=== PATIENT | male | born 1945 | race Caucasian/White ===

== ENCOUNTER 2024-03-17 09:17 | Day surgery (SDC) | payer MEDICARE, SELFPAY | END 2024-03-17 12:00 | disposition home or self-care (01) | LOC: CATH 09:17 | PROVIDERS: ATTENDING PHYSICIAN Internal Medicine; FAMILY PHYSICIAN Internal Medicine; OTHER PHYSICIAN Internal Medicine Cardiovascular Disease | DX: I48.0 Paroxysmal atrial fibrillation (principal); I10 Essential (primary) hypertension; I34.0 Nonrheumatic mitral (valve) insufficiency; Z87.891 Personal history of nicotine dependence; Z79.01 Long term (current) use of anticoagulants | CPT/HCPCS: 92960; 93005 ==

== ENCOUNTER → 2024-03-31 15:03 | Outpatient (REF) | payer MEDICARE, SELFPAY ==
[2024-03-31 16:04] LABS: % Basophils 0.7 % (0-2); % Eosinophils 2.6 % (0-6); % Immature Granulocytes 0.6 % (0-0.5); % Lymphocytes 25.4 % (20.5-51.1); % Monocytes 13.3 % (1.7-9.3); % Neutrophils 57.4 % (42.2-75.2); Absolute Basophils 0.1 10^3/uL (0-0.2); Absolute Eosinophils 0.2 10^3/uL (0-0.7); Absolute Immature Granulocytes 0.1 10^3/uL (0-0.05); Absolute Lymphocytes 2.1 10^3/uL (1.2-3.4); Absolute Monocytes 1.1 10^3/uL (0.1-0.6); Absolute Neutrophils 4.7 10^3/uL (1.4-6.5); Hematocrit 38.1 % (39.0-52.0); Hemoglobin 12.6 g/dL (13.0-18.0); Mean Corp Hgb Conc. 33.1 g/dL (33.0-37.0); Mean Corpuscular Hgb 32.9 pg (27.0-31.0); Mean Corpuscular Volume 99.5 fL (80.0-94.0); Mean Platelet Volume 10.4 fL (7.4-10.4); Nucleated Red Blood Cells % 0 % (-); Platelet Count 322 10^3/uL (130-400); Red Blood Cell Count 3.83 10^6/uL (4.70-6.10); Red Cell Dist. Width 13.2 % (11.5-14.5); White Blood Cell Count 8.1 10^3/uL (4.8-10.8)
[2024-03-31 16:18] LABS: ALT (SGPT) 13 U/L (0-50); AST (SGOT) 23 U/L (17-59); Albumin 4.2 g/dl (3.5-5.0); Alkaline Phosphatase 49 U/L (38-126); Blood Urea Nitrogen 23 mg/dl (9-20); Calcium 9.7 mg/dl (8.4-10.2); Carbon Dioxide 25 mmol/L (22-30); Chloride 105 mmol/L (98-107); Glucose 95 mg/dl (70-99); Potassium 4.3 mmol/L (3.5-5.1); Sodium 140 mmol/L (135-145); Total Bilirubin 0.6 mg/dl (0.2-1.3); Total Protein 6.8 g/dl (6.3-8.2); eGFR > 60.00
== END ==
LOC: REG 15:03
PROVIDERS: ATTENDING PHYSICIAN Internal Medicine Cardiovascular Disease; FAMILY PHYSICIAN Internal Medicine
DX: I48.19 Other persistent atrial fibrillation (principal); Z98.890 Other specified postprocedural states; I34.0 Nonrheumatic mitral (valve) insufficiency; I35.1 Nonrheumatic aortic (valve) insufficiency; I35.8 Other nonrheumatic aortic valve disorders
CPT/HCPCS: 36415; 80053; 85025; 86850; 86900; 86901

== ENCOUNTER 2024-04-05 05:49 | Day surgery (SDC) | payer MEDICARE, SELFPAY ==
[2024-04-05] VITALS (11 sets, daily range): BP systolic 103–123; BP diastolic 54–75; BMI 28.7
[2024-04-05 08:42] LABS: ACT-LR - POC 363 Seconds (116-155)
--- NOTE | 2024-04-05 09:16 | ITS.CL.ABL ---
[facility] - Ablation
Ablation
Procedure Report:
AFIB ablation:
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
Date of the Procedure:
04/05/2024
Indications:
Persistent recurrent atrial fibrillation
Pre-Operative Diagnosis:
Persistent Atrial fibrillation
Post-Operative Diagnosis:
Persistent Atrial fibrillation
Procedure Performed:
Atrial fibrillation Redo ablation with epicardial connection ablation at the right carinal location
Carinal line formation.
Performing Physician:
Joy Arauz MD
Assistants:
EP staff
Anesthesia:
See anesthesia records
Detailed Description of the Procedure:
Written informed consent was obtained from the patient after a full explanation of the risks and benefits of the procedure including the risks of sedation and anesthesia.
The patient was brought to the electrophysiology laboratory in stable condition in fasting state. Continuous electrocardiographic and hemodynamic monitoring was initiated.
The initial rhythm was atrial fibrillation.
The procedure site was meticulously prepared with surgical scrub and allowed to dry with no pooling. Sterile draping was applied to cover the procedure site. The image intensifier was draped with sterile bag and positioned over the patient. After
infusion of local anesthetic, vascular access was obtained under ultrasound guidance and sheaths were placed over guide wire as detailed below.
Sheath and Catheter Placement:
The following catheters / sheaths were placed
Sheaths:
��������� Agilis sheath in right femoral vein upgraded from 8Fr in right femoral vein
��������� 9Fr in left femoral vein
��������� 7Fr in left femoral vein
Catheters:
��������� [employer]ense [place] Thermocool STSF bidirectional� - at locations of HRA, RV, LA and LV.
��������� Pentaray catheter � at locations of LA and RA
��������� ICE catheter -AcuNav -� at locations of RA, SVC, and RV.
��������� Decapolar catheter in RA and CS
Intracardiac ECHO:
An 8-Gibraltarian AcuNav intracardiac ECHO (ICE) probe was advanced through the 9-Gibraltarian sheath in the right femoral vein into the right atrium under fluoroscopic and ICE ultrasound image guidance and a baseline ECHO study was performed. The left atrial
size was dilated. There was mild to moderate tricuspid regurgitation. The aortic valve was grossly normal. There was normal left ventricular size and function. There is no pericardial effusion. The MILLA has decreased velocities noted on Doppler. All
the four veins were identified and has good flow identified.
During the procedure, ICE was used for monitoring of complications, guidance of trans-septal puncture, monitor the catheter position and tracking ablation lesions. No change in the pericardial space noted throughout the procedure.
Transseptal Puncture:
Heparin was initiated and infused to maintain appropriate ACT. A J-tipped guidewire was advanced through the 8-Gibraltarian sheath in the right femoral vein into the superior vena cava under fluoroscopic and ICE guidance. The 8-Gibraltarian sheath was exchanged
for an Agilis sheath which was advanced into the superior vena cava. A BRK transseptal needle was advanced until the tip was slightly behind the tip of the dilator inside the sheath. The apparatus was withdrawn until it was in contact with the
foramen ovale. The position was adjusted based on fluoroscopy and ultrasound images from ICE. Under fluoroscopic, hemodynamic and ICE ultrasound guidance, left atrium was cannulated by advancing the needle. Once atrial septum was cannulated, the
needle was pulled back and a BMW guide wire was advanced through the needle into the left atrium. The guide wire was advanced into the left superior pulmonary vein. Both the sheath and the dilator was advanced into the left atrium under fluoro and
ICE guidance. The dilator with the needle was withdrawn. Blood was aspirated from the Agilis sheath and arterial blood confirmed. The sheath was flushed. Saline injection noted into the left atrium on ICE. The mapping catheter was advanced in the
Agilis sheath into the left pulmonary vein.
3D Electroanatomic Mapping:
Using the Pentaray catheter advanced through Agilis sheath into the left atrium, an electroanatomic map (EAM) of the left atrium was created using Androcial mapping system. The map was used for localization of catheter position and
tacking of ablation lesions. The EAM of the left atrium showed 4 pulmonary veins. It showed both left sided veins were isolated but the right sided veins had reconnections.
Cardioversion:
With persistent atrial fibrillation, patient underwent DC cardioversion and remapping of the left atrium in sinus rhythm. A single 150 J shock was delivered from anteroposteriorly placed ZOLL pads achieving normal sinus rhythm without any
significant conversion pause.
Electroanatomic mapping of the left atrium in sinus rhythm:
LA in sinus rhythm shows that the wide area circumferential lesions created by the previous lesions were still intact with earliest signals coming to the right-sided pulmonary veins via the epicardial connections in the carinal area.�
It showed minimal scar in the LA body. The LA was dilated in size.
Following the EAM, preparation were made for ablation.
Ablation:
Ablation # 1: Pulmonary vein Isolation:
Radiofrequency ablation was performed using an open irrigation, force-sensing 3.5mm radiofrequency ablation catheter ([id number] [id number]) by identifying the earliest epicardial connections in the right-sided pulmonary vein and ablating those areas.�
Once pulm vein isolation was completed with epicardial connections, decision was made to create a full epicardial line. The anterior antral scar line was connected to the posterior scar line via the epicardial line in the right-sided pulmonary
veins.�
All the ablation lesions were guided by the [facility] SURPOINT module with the posterior lesions were limited to 45 paiz for SURPOINT lesion index goal of 450 and anterior wall lesions were limited to SURPOINT index goal of 450.
The esophagus was noted to be on the mid of the LA based on the locations of the esophageal temperature probe. Ablation was stopped for any temperature increase of 0.1 degree C. Max esophageal temperature was 36.6C.
Once pulmonary vein isolation was completed and confirmed, the other areas of fractionated signals inside the pulmonary vein and antrum were identified and ablated one by one.
Confirmation of the PVI and bidirectional block:
Following achievement of entrance block at the pulmonary veins, pacing from the pentaray in each of the four veins at 10 milliamps for 2 milliseconds showed entrance and exit block.
EP study:
Normal AV conduction noted.
All PVI were rechecked at the end of the case and remained isolated with dissociated and local capture with pacing. Entrance and exit block were demonstrated in all veins.
Procedure End
ICE study was done again that showed no epicardial accumulation. No complications noted.
Following the completion of the EP study, catheters were removed. Protamine 40 mg was given at the end of the procedure and ACT was checked repeatedly. The sheaths were removed and hemostasis achieved with manual compression after acceptable ACT is
achieved.
Left atrial Pressure:
Pre-Procedure: Mean LA pressure was 16mmHg
Post-Procedure: Mean LA pressure was 17mmHg
Post-Procedure: Mean RA pressure was 9mmHg
LA volume:
145 ml - sinus rhythm
Estimated Blood loss:
<10 cc
Specimens Removed:
None.
Implants / Devices:
None
Urine output:
None
Packs / Drains/ Tubes:
None
Instrument / Sponge Count Correct:
Yes
Complications of the Procedure:
None
Condition of Patient at Time of Transfer:
Hemodynamically stable with no neurological or vascular compromise.
Summary:
Successful atrial fibrillation ablation with Epicardial connection ablation with carinal line formation,
Figures from the Procedure:
Figure 1: The electroanatomic mapping (EAM) of the left atrium with bipolar voltage (purple indicates normal electrical activity with red as no myocardial muscle electric activity indicating a line of block or scar.
[2024-04-05] MEDS: TYLENOL 650 MG PO (11:19)
--- NOTE | 2024-04-05 14:38 | W.PN.UPDATE ---
Update Note
Progress Note Update
Pt seen post PVI. Right groin with FOE closure, no ht/bleeding, non tender. OOB ambulating, urinating without difficulty. Post EKG NSR 70s, no acute changes. Resume eliquis today, continue other meds as before. 2 weeks protonix sent to pharmacy.
Followup at [facility] as scheduled. Home today if groin site/tele remain stable.
[2024-04-05 14:48] LABS: ACT-LR - POC > 397 Seconds (116-155)
== END 2024-04-05 14:00 | disposition home or self-care (01) ==
LOC: CATH 05:49
PROVIDERS: ATTENDING PHYSICIAN Internal Medicine Cardiovascular Disease; FAMILY PHYSICIAN Internal Medicine; OTHER PHYSICIAN Internal Medicine Cardiovascular Disease
DX: I48.19 Other persistent atrial fibrillation (principal); I08.0 Rheumatic disorders of both mitral and aortic valves; Z87.891 Personal history of nicotine dependence; Z79.01 Long term (current) use of anticoagulants
CPT/HCPCS: C1769; C1894; C1730; C1732; C1766; C1892; 76937; 85347; 86850; 86900; 86901; 93005; 93656

== ENCOUNTER 2024-04-08 08:30 | Emergency (ER) | payer MEDICARE, SELFPAY ==
[2024-04-08] VITALS (7 sets, daily range): BP systolic 120–156; BP diastolic 63–82
--- NOTE | 2024-04-08 08:50 | ED.GENMED ---
History of Present Illness
General
Chief Complaint: Breathing Problem
Source: patient and spouse
Exam Limitations: none
Time Seen by Provider: 04/08/24 08:41
Nursing documentation reviewed up to this point in time: agreed with
Travel History
Have you had any contact with someone who has COVID-19?: No
Do you have any symptoms of coronavirus? Fever > 100 degrees, chills, cough, shortness of breath, sore throat, loss of taste or smell, muscle aches, or headache?: No
History of Present Illness
History of Present Illness:
Patient is a 78-year-old male who presents to the ER for evaluation. Patient has a history of A-fib and just had an ablation on Friday by Dr. Arauz. He is on Eliquis and has not missed a dose. He reports since Friday he has felt very short
of breath worse with exertion. Today he walks a flight of steps and is very short of breath which is not normal for him. He has some associated chest pain. He denies any recent cough fever chills.
Past History
Past History
ED Past Medical History: Arrthythmia (Atrial fibrillation with pulmonary vein ablation in November 2022), HTN and Other (BPH); Negative CAD, Hypercholesterolemia, IDDM or NIDDM
ED Past Surgical History: Orthopedic
Social History
Tobacco: Non-smoker
Family History
Family History: Negative CAD
Review of Systems
Review of Systems
Allergies reviewed?: Yes
All Other Systems: ROS reviewed and negative except as documented in HPI and ROS
Constitutional: Reports no symptoms; Denies fever, fatigue or chills
Respiratory: Reports trouble breathing
Cardiac: Reports no symptoms
: Reports no symptoms
Musculoskeletal: Reports no symptoms
Skin: Reports no symptoms
Neurological: Reports no symptoms
Psychiatric: Reports no symptoms
Phy Exam
General Physical Exam
General Presentation: no apparent distress
General age: appears stated age
General Skin: warm and dry
General Habitus: normal
General Mental: alert
General Hydration: appears well hydrated
Cardiovascular Exam
Cardiovascular Exam: regular rate/rhythm, no murmur and normal peripheral pulses
Pulmonary Exam
Pulmonary Exam: lungs clear and no respiratory distress
Neurological Exam
Neurological Exam: alert and oriented x3
Scores
Heart Failure Risk
Heart Failure Risk Score: Not Applicable
Course
Orders/Labs/Results
Orders:
Orders
04/08/24 08:34
Electrocardiogram (*1) Urgent
Reason for Study: Shortness of Breath
04/08/24 08:35
EKG- Treatment ONCE
04/08/24 08:49
IV Insert/Care/Rem.- Treatment PRN
04/08/24 08:50
Cardiac Monitoring- Treatment ONCE
EKG- Treatment ONCE
CR Chest - 2 Views Urgent
Comment:
Reason For Exam: sob
04/08/24 08:56
Basic Metabolic Panel Urgent
Complete Blood Count/With Diff Urgent
NT-proBNP Urgent
04/08/24 10:15
Echo 2D MMode Color/Doppler Routine
Reason for Study: SOB, recent ablation
04/08/24 10:52
Potassium Routine
04/08/24 15:27
Furosemide [Lasix] 20 mg IV NOW STA
Abnormal Lab Results
04/08/24
08:56
WBC 12.4 H 10^3/uL
(4.8-10.8)
RBC 3.42 L 10^6/uL
(4.70-6.10)
Hgb 11.5 L g/dL
(13.0-18.0)
Hct 33.0 L %
(39.0-52.0)
MCV 96.5 H fL
(80.0-94.0)
MCH 33.6 H pg
(27.0-31.0)
Abs Immat Gran (auto) 0.1 H 10^3/uL
(0-0.05)
Absolute Neuts (auto) 9.3 H 10^3/uL
(1.4-6.5)
Absolute Monos (auto) 1.5 H 10^3/uL
(0.1-0.6)
Immature Gran % 0.9 H %
(0-0.5)
Lymphocytes % 10.4 L %
(20.5-51.1)
Monocytes % 12.0 H %
(1.7-9.3)
Glucose 102 H mg/dl
(70-99)
04/08/24 08:56
04/08/24 10:52
Vital Signs
Initial and Last Documented VS:
Initial Vital Signs
Temp Pulse Resp BP Pulse Ox
98.7 F 73 16 156/82 98
04/08/24 08:31 04/08/24 08:31 04/08/24 08:31 04/08/24 08:31 04/08/24 08:31
Last Documented Vital Signs
Temp Pulse Resp BP Pulse Ox
98.7 F 70 17 120/63 95
04/08/24 08:31 04/08/24 15:00 04/08/24 15:00 04/08/24 15:00 04/08/24 15:00
Judicial Law Clerk consulted with Physician
Judicial Law Clerk consulted with physician?: Yes
Name of Physician Consulted: Izabella
MDM/Problems Addressed
MDM/Problems Addressed:
Patient is a 78-year-old male status post cardiac ablation for A-fib by Dr. Arauz on Friday. Patient presents with worsening shortness of breath for the past several days no history of CHF no lower extremity swelling. Lungs are clear not hypoxic
at rest. X-ray does show mild CHF BNP 560. Patient is anticoagulated on Eliquis has not missed a dose.
He has had some chest congestion over the past several days believes is allergies no fever he is afebrile here.
Discussed case with cardiology who will see patient.
12:57 pm: Cardiology evaluated patient earlier and echo ordered to rule out pericardial effusion with recent ablation
1530: Patient was evaluated by Dr. Marc echo was normal patient can be discharged home with Lasix 20 mg daily until he sees cardiology follow-up appointment April 29.
Chronic conditions affecting care:
afib on eliquis recent cardiac ablation
*Radiology
Radiology exam reviewed: radiology read reviewed
*Pulse Oximetry
Patient hypoxic: no
*Critical Care Note
Total Time (30-74mins, 75-104mins- exclusive of procedures): Not Applicable
Patient Management
Discussion with other providers: Lump Inspector (DR Arechiga )
ED Attending Note
-
Portions of this chart may have been created with voice recognition software.� Occasional wrong word or��sound alike� substitutions may have occurred due to the inherent limitations of voice recognition software.
Discharge Plan
Departure
Patient Disposition: Home (Routine Discharge)
Date of Disposition: 04/08/24
Time of Disposition: 15:31
Patient with high blood pressure during this ER visit?: Yes
Condition: Fair
Covid-19: Not Applicable
Discharge Problem:
Congestive heart failure (CHF)
Instructions: Heart Failure, Adult (DC)
Prescriptions:
New
furosemide [Lasix] 20 mg tablet
20 mg PO DAILY Qty: 30 0RF
No Action
Eliquis 5 MG tablet
5 mg PO BID Qty: 60 0RF
finasteride 5 MG tablet
5 mg PO HS
flecainide 100 mg Tablet
100 mg PO BID
clobetasol 0.05 % Ointment
1 applic TOPICAL BID
diltiazem HCl [Cartia XT] 180 mg Capsule,Extended Release 24hr
180 mg PO DAILY
tamsulosin 0.4 mg Capsule
0.4 mg PO DAILY
Tylenol PM Extra Strength 25-500 mg Tablet
1 tab PO HSPRN PRN (Reason: sleep)
fluticasone propionate 50 mcg/actuation [place],Suspension
2 spray INTRANASAL DAILYPRN PRN (Reason: allergies)
pantoprazole 40 mg tablet,delayed release (DR/EC)
40 mg PO DAILY Qty: 14 0RF
Referrals:
NONE,* [Active] -
Joseph Arechiga MD [Active] -
Activity Restrictions/Additional Instructions:
As discussed you will be started on Lasix 20 mg daily until outpatient followed by cardiology April 29. This medication was sent to your pharmacy. Return if any worsening of symptoms of worsening shortness of breath leg swelling , chest pain or any
further concerns.
Interventions
Interventions:
*Risk Screen - Suicide Last Done: 04/08/24 08:47
*General Assessment Last Done: 04/08/24 08:47
*Neglect/Abuse Screening Last Done: 04/08/24 08:47
ED- Fall Risk Assessment Last Done: 04/08/24 12:08
*ED COVID-19 Vaccine History Last Done: 04/08/24 08:31
ED- Cardiac Assessment Last Done: 04/08/24 08:47
ED- Pulmonary Assessment Last Done: 04/08/24 08:47
Discharge Date and Time
Print Language: PASHTO
[2024-04-08 09:17] LABS: % Basophils 0.3 % (0-2); % Eosinophils 1.3 % (0-6); % Immature Granulocytes 0.9 % (0-0.5); % Lymphocytes 10.4 % (20.5-51.1); % Neutrophils 75.1 % (42.2-75.2); Absolute Eosinophils 0.2 10^3/uL (0-0.7); Absolute Immature Granulocytes 0.1 10^3/uL (0-0.05); Absolute Lymphocytes 1.3 10^3/uL (1.2-3.4); Absolute Monocytes 1.5 10^3/uL (0.1-0.6); Absolute Neutrophils 9.3 10^3/uL (1.4-6.5); Hemoglobin 11.5 g/dL (13.0-18.0); Mean Corp Hgb Conc. 34.8 g/dL (33.0-37.0); Mean Corpuscular Hgb 33.6 pg (27.0-31.0); Mean Corpuscular Volume 96.5 fL (80.0-94.0); Nucleated Red Blood Cells % 0 % (-); Platelet Count 290 10^3/uL (130-400); Red Blood Cell Count 3.42 10^6/uL (4.70-6.10); Red Cell Dist. Width 13.4 % (11.5-14.5); White Blood Cell Count 12.4 10^3/uL (4.8-10.8)
[2024-04-08 09:28] LABS: Blood Urea Nitrogen 20 mg/dl (9-20); Calcium 9.3 mg/dl (8.4-10.2); Carbon Dioxide 24 mmol/L (22-30); Chloride 107 mmol/L (98-107); Glucose 102 mg/dl (70-99); Sodium 138 mmol/L (135-145); eGFR > 60.00
[2024-04-08 09:36] LABS: NT-proBNP 560 pg/ml
--- NOTE | 2024-04-08 10:27 | CON.CAR ---
Addendum entered and electronically signed by Joseph Arechiga MD 04/08/24 15:27:
I saw and examined the patient.
The [employer]OWAVE REMOTE SENSING SCIENTIST's note was reviewed and I agree with the note.
Comment: 78M with dyspnea. Seems to have a bit of HF.
- Echo does NOT show effusion
- Lasix 20 po qd until seen by us on April 29
- no cardiac contraindication to discharge
Original Note:
Consultation
Consultation Request
Date/Time Consultation Requested: 04/08/24 1005
Date/Time Consultation Performed: 04/08/24 1010
Requesting Provider: Jayla Dawson
Performing Provider: Inez FRANCISCO for Dr. Arechiga
Reason for Consultation: SOB, recent ablation
Medical History
-
Chief Complaint: SOB
History of Present Illness:
78 y/o male with AFIB s/p ablation 11/28/22, then repeat ablation 04/05/23. He is on Eliquis, diltiazem, and flecainide and has been compliant with meds including this AM. He is here because for about a day and a half, he has noticed SOB. It is worse
with exertion. On exam, he is in no distress. CXR suggestive of mild CHF, BNP 560.
Past Medical History
Past Medical History: Arrhythmias and Other (BPH)
Social History
Personal:
Living: With Family
Family History
Family History: Reviewed & Not Pertinent
Allergies / Home Medications
Allergy/AdvReac Type Severity Reaction Status Date / Time
cat dander Allergy nasal Verified 04/08/24 08:34
congestion
dog dander Allergy nasal Verified 04/08/24 08:34
congestion
pollen extracts Allergy nasal Verified 04/08/24 08:34
congestion
�Medication �Instructions �Recorded �Confirmed �Type
apixaban 5 mg tablet (Eliquis) 5 mg PO BID #60 tabs 01/09/22 04/05/24 Rx
finasteride 5 mg tablet 5 mg PO HS 02/12/22 04/05/24 History
clobetasol 0.05 % topical ointment 1 applic topical BID 03/17/24 04/05/24 History
flecainide 100 mg tablet 100 mg PO BID 03/17/24 04/05/24 History
diltiazem HCl 180 mg 180 mg PO DAILY 04/05/24 04/05/24 History
capsule,extended release 24 hr
(Cartia XT)
diphenhydramine 25 1 tab PO HSPRN PRN sleep 04/05/24 04/05/24 History
mg-acetaminophen 500 mg tablet
(Tylenol PM Extra Strength)
fluticasone propionate 50 2 spray intranasal DAILYPRN PRN 04/05/24 04/05/24 History
mcg/actuation nasal allergies
spray,suspension
pantoprazole 40 mg tablet,delayed 40 mg PO DAILY #14 tabs 04/05/24 Rx
release
tamsulosin 0.4 mg capsule 0.4 mg PO DAILY 04/05/24 04/05/24 History
Review of Systems
-
History Source: Patient
All other systems: Negative unless noted
Respiratory: Trouble Breathing
Physical Exam
Vital Signs
Temp Pulse Resp BP Pulse Ox
98.7 F 73 16 156/82 98
04/08/24 08:31 04/08/24 08:31 04/08/24 08:31 04/08/24 08:31 04/08/24 08:31
Lab Results
04/08/24 08:56
Vxn-H-[id number] Pept 560 pg/ml 04/08/24 08:56
Physical Exam
General: Well Developed, Well Nourished and No Apparent Distress
HEENT: Normocephalic and Anicteric
Respiratory: Crackles (mild rales to bases)
Cardiac: Regular Rhythm
Musculoskeletal: Edema (trace edema)
Skin: Warm and Dry
Neuro: AO x 3
Psych: Calm
Impression / Plan
-
SOB:
-CXR suggestive of mild HF (would be acute HFpEF-mild)- in setting of recent persistent afib and IVF in procedure. Weight up based on ER weight. SOB worse with laying and exertion.
-will check echo to r/o pericardial effusion in this patient with recent ablation
-if no effusion, will give Lasix- also rechecking potassium (no result on initial labs).
Persistent AFIB:
-stable in SR s/p ablation. Right groin site stable- mild ecchymosis, no hematoma.
-continue diltiazem, flecainide, and Eliquis
-continue 2 week PPI
Data Reviewed
-
EKG: Tracing Personally Visualized and interpreted (NSR)
Radiology: Report Reviewed by me (mild CHF with very small effusions)
Medical Tests (Nuc Med, Echo etc): Report Reviewed by me (ERIN 11/28/22: Normal biventricular size and systolic function without regional wall motion abnormality. Left Atrial enlargement No significant valve abnormalities. No intracardiac mass
or thrombus formation seen.)
Labs: Labs Reviewed by me
[2024-04-08 11:15] LABS: Potassium 4.5 mmol/L (3.5-5.1)
[2024-04-08] MEDS: LASIX 20 MG IV (15:44)
== END 2024-04-08 15:53 | disposition home or self-care (01) ==
LOC: EMR 08:30
PROVIDERS: Nurse Practitioner; EMERGENCY PHYSICIAN Emergency Medicine; FAMILY PHYSICIAN Internal Medicine; OTHER PHYSICIAN Internal Medicine Cardiovascular Disease
DX: R06.02 Shortness of breath (principal); R07.89 Other chest pain; I11.0 Hypertensive heart disease with heart failure; I50.9 Heart failure, unspecified; I48.19 Other persistent atrial fibrillation; M06.9 Rheumatoid arthritis, unspecified; N40.0 Benign prostatic hyperplasia without lower urinary tract symptoms; Z98.890 Other specified postprocedural states; Z87.891 Personal history of nicotine dependence; Z79.01 Long term (current) use of anticoagulants; Z91.048 Other nonmedicinal substance allergy status
CPT/HCPCS: 99285; 96374; 71046; 80048; 83880; 84132; 85025; 93005; 93306

== ENCOUNTER → 2024-09-17 08:40 | Outpatient (REF) | payer MEDICARE, SELFPAY | LOC: EMG 08:40 | PROVIDERS: ATTENDING PHYSICIAN Internal Medicine | DX: G56.91 Unspecified mononeuropathy of right upper limb (principal); G56.92 Unspecified mononeuropathy of left upper limb; G56.03 Carpal tunnel syndrome, bilateral upper limbs | CPT/HCPCS: 95886; 95911 ==

== ENCOUNTER 2024-11-09 10:32 | Emergency (ER) | payer MEDICARE, SELFPAY ==
[2024-11-09 10:42] VITALS: BP 140/60
[2024-11-09 11:06] LABS: % Basophils 0.5 % (0-2); % Eosinophils 1.5 % (0-6); % Immature Granulocytes 0.6 % (0-0.5); % Lymphocytes 18.9 % (20.5-51.1); % Monocytes 14.4 % (1.7-9.3); % Neutrophils 64.1 % (42.2-75.2); Absolute Eosinophils 0.1 10^3/uL (0-0.7); Absolute Lymphocytes 1.2 10^3/uL (1.2-3.4); Absolute Monocytes 0.9 10^3/uL (0.1-0.6); Absolute Neutrophils 4.2 10^3/uL (1.4-6.5); Hematocrit 34.4 % (39.0-52.0); Hemoglobin 11.7 g/dL (13.0-18.0); Mean Corpuscular Hgb 33.2 pg (27.0-31.0); Mean Corpuscular Volume 97.7 fL (80.0-94.0); Nucleated Red Blood Cells % 0 % (-); Platelet Count 276 10^3/uL (130-400); Red Blood Cell Count 3.52 10^6/uL (4.70-6.10); Red Cell Dist. Width 13.2 % (11.5-14.5); White Blood Cell Count 6.5 10^3/uL (4.8-10.8)
[2024-11-09 11:12] LABS: ALT (SGPT) 16 U/L (0-50); AST (SGOT) 23 U/L (17-59); Albumin 4.3 g/dl (3.5-5.0); Alkaline Phosphatase 41 U/L (38-126); Blood Urea Nitrogen 21 mg/dl (9-20); Calcium 9.1 mg/dl (8.4-10.2); Carbon Dioxide 24 mmol/L (22-30); Chloride 103 mmol/L (98-107); Glucose 108 mg/dl (70-99); Potassium 4.4 mmol/L (3.5-5.1); Sodium 135 mmol/L (135-145); Total Bilirubin 0.8 mg/dl (0.2-1.3); Total Protein 6.9 g/dl (6.3-8.2); eGFR > 60.00
[2024-11-09 11:24] LABS: NT-proBNP 320 pg/ml; Troponin I < 0.012 ng/ml
[2024-11-09 14:34] LABS: Troponin I < 0.012 ng/ml
--- NOTE | 2024-11-09 14:46 | ED.GENMED ---
History of Present Illness
General
Chief Complaint: Breathing Problem
Source: patient
Exam Limitations: none
Time Seen by Provider: 11/09/24 11:45
History of Present Illness
History of Present Illness:
78-year-old male complaining of an episode of lightheadedness and some mild dyspnea on exertion this morning. Occurred while walking his dog. Lightheadedness occurred while getting to the top of the stairs. Feels better now. Typically exercises
without issues. No chest pain pleuritic pain leg pain fever cough etc. Patient does not feel he was in atrial fibrillation.
Past History
Past History
ED Past Medical History: Arrthythmia (Atrial fibrillation with pulmonary vein ablation in November 2022), HTN and Other (BPH); Negative CAD, Hypercholesterolemia, IDDM or NIDDM
ED Past Surgical History: Orthopedic
Social History
Tobacco: Non-smoker
Family History
Family History: Negative CAD
Review of Systems
Review of Systems
All Other Systems: Not applicable
Constitutional: Denies fever or chills
Cardiac: Denies syncope
ABD/GI: Reports no symptoms
Phy Exam
Physical Exam
Physical Exam:
GENERAL: Alert and oriented in no apparent distress
EYE: Orbits normal.
NECK: Supple, no significant adenopathy.
ENT: Pharynx without erythema
CARDIAC: Regular rate and rhythm without any obvious murmurs.
LUNGS: Clear breath sounds,normal
ABDOMEN: Soft, without focal tenderness or distention
NEUROLOGICAL: Alert and oriented , grossly non-focal
SKIN: Warm and dry, no rash or lesion, no discoloration, skin intact.
MUSCULOSKELETAL: No edema,no deformity.Good color
PSYCH: Normal and appropriate interaction. No thyroid palpable
Scores
Heart Failure Risk
Heart Failure Risk Score: Not Applicable
Course
Orders/Labs/Results
Orders:
Orders
11/09/24 10:33
ECG [Electrocardiogram (*1)] Urgent
Reason for Study: Shortness of Breath
Other Reason for Exam: dizzy
EKG- Treatment ONCE
11/09/24 10:49
CR Chest - 2 Views Urgent
Comment:
Reason For Exam: sob
11/09/24 10:52
Complete Blood Count/With Diff Urgent
Comprehensive Metabolic Panel Urgent
Pro-BNP [NT-proBNP] Urgent
Troponin I Urgent
11/09/24 12:28
EKG- Treatment ONCE
11/09/24 14:00
Electrocardiogram (*1) Urgent
Reason for Study: Chest Pain
11/09/24 14:03
Troponin I Urgent
Abnormal Lab Results
11/09/24
10:52
RBC 3.52 L 10^6/uL
(4.70-6.10)
Hgb 11.7 L g/dL
(13.0-18.0)
Hct 34.4 L %
(39.0-52.0)
MCV 97.7 H fL
(80.0-94.0)
MCH 33.2 H pg
(27.0-31.0)
Absolute Monos (auto) 0.9 H 10^3/uL
(0.1-0.6)
Immature Gran % 0.6 H %
(0-0.5)
Lymphocytes % 18.9 L %
(20.5-51.1)
Monocytes % 14.4 H %
(1.7-9.3)
BUN 21 H mg/dl
(9-20)
Glucose 108 H mg/dl
(70-99)
11/09/24 10:52
11/09/24 10:52
Vital Signs
Initial and Last Documented VS:
Initial Vital Signs
Temp Pulse Resp BP Pulse Ox
97.8 F 53 18 140/60 99
11/09/24 10:42 11/09/24 10:42 11/09/24 10:42 11/09/24 10:42 11/09/24 10:42
Last Documented Vital Signs
Temp Pulse Resp BP Pulse Ox
97.8 F 53 18 140/60 99
11/09/24 10:42 11/09/24 10:42 11/09/24 10:42 11/09/24 10:42 11/09/24 10:42
MDM/Problems Addressed
Differential Diagnosis Includes:
Patient clinically stable and nontoxic. Benign exam. Doubt arrhythmia issue. Not picked up on any watch and not describing any palpitations or heart racing. Dyspnea on exertion theoretically could be a cardiac equivalent although no history of
CAD. Troponin x 2 is normal. EKG is normal. Patient is asymptomatic. Reasonable for close outpatient follow-up. Highly doubt PE. Patient is anticoagulated and faithful with his medications
*Radiology
Radiology exam reviewed: radiology read reviewed (Negative)
*Pulse Oximetry
Patient hypoxic: no
*EKG
Interpreted by ED Provider?: Yes
Comparison EKG: no changes
Heart Rate: 56
Rate: bradycardiac
Rhythm: sinus
[place]: normal axis
Interval: normal interval
QRS Pattern: normal QRS
Ischemia: no ischemia
*Critical Care Note
Total Time (30-74mins, 75-104mins- exclusive of procedures): Not Applicable
Update Note
Update Note:
Patient is remained medically stable nontoxic. Benign exam. Negative workup. Will follow-up with cardiology
ED Attending Note
-
Portions of this chart may have been created with voice recognition software.� Occasional wrong word or��sound alike� substitutions may have occurred due to the inherent limitations of voice recognition software.
Discharge Plan
Departure
Patient Disposition: Home (Routine Discharge)
Date of Disposition: 11/09/24
Time of Disposition: 15:00
Patient with high blood pressure during this ER visit?: Yes
Discharge Problem:
Exertional dyspnea, Transient lightheadedness
Instructions: Dizziness in adults - ED discharge instructions, Chest Pain CBC Follow Up, BLOOD PRESSURE
Prescriptions:
No Action
Eliquis 5 MG tablet
5 mg PO BID Qty: 60 0RF
finasteride 5 MG tablet
5 mg PO HS
flecainide 100 mg Tablet
100 mg PO BID
clobetasol 0.05 % Ointment
1 applic TOPICAL BID
diltiazem HCl [Cartia XT] 180 mg Capsule,Extended Release 24hr
180 mg PO DAILY
tamsulosin 0.4 mg Capsule
0.4 mg PO DAILY
Tylenol PM Extra Strength 25-500 mg Tablet
1 tab PO HSPRN PRN (Reason: sleep)
fluticasone propionate 50 mcg/actuation [place],Suspension
2 spray INTRANASAL DAILYPRN PRN (Reason: allergies)
pantoprazole 40 mg tablet,delayed release (DR/EC)
40 mg PO DAILY Qty: 14 0RF
furosemide [Lasix] 20 mg tablet
20 mg PO DAILY Qty: 30 0RF
Referrals:
Radha Alexandra MD [Family Provider] - Follow up in 2-3 days
Interventions
Interventions:
*Risk Screen - Suicide Last Done: 11/09/24 10:42
*General Assessment Last Done: 11/09/24 10:42
*Neglect/Abuse Screening Last Done: 11/09/24 10:42
*ED COVID-19 Vaccine History Last Done: 11/09/24 10:42
Discharge Date and Time
Print Language: CZECH
[2024-11-09 15:00] VITALS: BP 126/61
== END 2024-11-09 15:08 | disposition home or self-care (01) ==
LOC: EMR 10:32
PROVIDERS: Emergency Medicine; EMERGENCY PHYSICIAN Emergency Medicine; FAMILY PHYSICIAN Internal Medicine
DX: R06.09 Other forms of dyspnea (principal); R42 Dizziness and giddiness; I10 Essential (primary) hypertension; I48.91 Unspecified atrial fibrillation; N40.0 Benign prostatic hyperplasia without lower urinary tract symptoms
CPT/HCPCS: 99285; 71046; 80053; 83880; 84484; 85025; 93005

== ENCOUNTER → 2024-11-30 10:06 | Outpatient (REF) | payer MEDICARE, SELFPAY | LOC: RCS 10:06 | PROVIDERS: ATTENDING PHYSICIAN Student in an Organized Health Care Education/Training Program; FAMILY PHYSICIAN Internal Medicine | DX: R06.09 Other forms of dyspnea (principal) | CPT/HCPCS: 93017; 93350 ==

== ENCOUNTER 2025-03-11 16:58 | Emergency (ER) | payer MEDICARE, SELFPAY ==
[2025-03-11 17:01] VITALS: BP 142/77
--- NOTE | 2025-03-11 18:11 | ED.GENMED ---
History of Present Illness
General
Chief Complaint: Post Operative Problem(s)
Source: patient
Exam Limitations: none
Time Seen by Provider: 03/11/25 18:03
History of Present Illness
History of Present Illness:
79-year-old male who takes Eliquis presents for evaluation of bloody postoperative dressing. He had a left hand carpal tunnel release this morning. He was not instructed to stop his Eliquis prior to the procedure. He notes his dressing was slowly
getting more full with blood as the day progressed. He states since being here the bleeding has slowed down. No other complaints at this time
Past History
Past History
ED Past Medical History: Arrthythmia (Atrial fibrillation with pulmonary vein ablation in November 2022), HTN and Other (BPH); Negative CAD, Hypercholesterolemia, IDDM or NIDDM
ED Past Surgical History: Orthopedic
Social History
Tobacco: Non-smoker
Family History
Family History: Negative CAD
Phy Exam
Physical Exam
Physical Exam:
General: Well-appearing male no acute respiratory distress
HEENT: Normocephalic atraumatic skin:
Surgical dressing noted on left palm is saturated with blood no evidence of active bleeding. There is mild ecchymosis into the distal portion of the palm.
Musculoskeletal exam: Good range of motion all fingers
Course
Vital Signs
Initial and Last Documented VS:
Initial Vital Signs
Temp Pulse Resp BP Pulse Ox
97.9 F 64 18 142/77 98
03/11/25 17:01 03/11/25 17:01 03/11/25 17:01 03/11/25 17:01 03/11/25 17:01
Last Documented Vital Signs
Temp Pulse Resp BP Pulse Ox
97.9 F 64 18 142/77 98
03/11/25 17:01 03/11/25 17:01 03/11/25 17:01 03/11/25 17:01 03/11/25 17:01
MDM/Problems Addressed
Differential Diagnosis Includes:
Saturated postoperative dressing. Took a picture of the dressing and sent it to the surgeon of record, Dr. Izaguirre who saw the picture and recommended exchanging the dressing with gauze and Bridger wrap.
*Critical Care Note
Total Time (30-74mins, 75-104mins- exclusive of procedures): Not Applicable
Update Note
Update Note:
The wound was uncovered. The remaining clot was washed off and the remaining wound was dried. It looks like there is a subtle ooze from the most proximal suture. Adaptic and gauze dressing was applied in a bulky fashion covered by an Bridger bandage.
Stable for discharge
ED Attending Note
-
Portions of this chart may have been created with voice recognition software.� Occasional wrong word or��sound alike� substitutions may have occurred due to the inherent limitations of voice recognition software.
Discharge Plan
Departure
Patient Disposition: Home (Routine Discharge)
Date of Disposition: 03/11/25
Time of Disposition: 18:28
Patient with high blood pressure during this ER visit?: No
Discharge Problem:
Bleeding from surgical wound
Instructions: Wound Care (DC)
Prescriptions:
No Action
Eliquis 5 MG tablet
5 mg PO BID Qty: 60 0RF
finasteride 5 MG tablet
5 mg PO HS
flecainide 100 mg Tablet
100 mg PO BID
clobetasol 0.05 % Ointment
1 applic TOPICAL BID
diltiazem HCl [Cartia XT] 180 mg Capsule,Extended Release 24hr
180 mg PO DAILY
tamsulosin 0.4 mg Capsule
0.4 mg PO DAILY
Tylenol PM Extra Strength 25-500 mg Tablet
1 tab PO HSPRN PRN (Reason: sleep)
fluticasone propionate 50 mcg/actuation [place],Suspension
2 spray INTRANASAL DAILYPRN PRN (Reason: allergies)
pantoprazole 40 mg tablet,delayed release (DR/EC)
40 mg PO DAILY Qty: 14 0RF
furosemide [Lasix] 20 mg tablet
20 mg PO DAILY Qty: 30 0RF
Activity Restrictions/Additional Instructions:
Keep dressing on for 3 to 5 days. Follow instructions as per surgeon otherwise. Return if needed
Interventions
Interventions:
*Risk Screen - Suicide Last Done: 03/11/25 17:01
*General Assessment Last Done: 03/11/25 17:01
*Neglect/Abuse Screening Last Done: 03/11/25 17:49
*ED- Fall Risk Assessment Last Done: 03/11/25 17:49
*ED COVID-19 Vaccine History Last Done: 03/11/25 17:01
ED-Skin Assessment Last Done: 03/11/25 17:49
Discharge Date and Time
Print Language: BENGALI
[2025-03-11] MEDS: TYLENOL 1000 MG PO (18:44)
== END 2025-03-11 19:02 | disposition home or self-care (01) ==
LOC: EMR 16:58
PROVIDERS: EMERGENCY PHYSICIAN Emergency Medicine; FAMILY PHYSICIAN Internal Medicine
DX: L76.22 Postprocedural hemorrhage of skin and subcutaneous tissue following other procedure (principal); I48.91 Unspecified atrial fibrillation; I10 Essential (primary) hypertension; N40.0 Benign prostatic hyperplasia without lower urinary tract symptoms; G56.02 Carpal tunnel syndrome, left upper limb
CPT/HCPCS: 99282

== ENCOUNTER 2025-08-12 06:13 | Day surgery (SDC) | payer MEDICARE, SELFPAY | END 2025-08-12 11:22 | disposition home or self-care (01) | LOC: GI 06:13 | PROVIDERS: ATTENDING PHYSICIAN Internal Medicine Gastroenterology | DX: Z12.11 Encounter for screening for malignant neoplasm of colon (principal); K64.8 Other hemorrhoids; D12.2 Benign neoplasm of ascending colon; Z86.0100 Personal history of colon polyps, unspecified | CPT/HCPCS: 45385; 88305 ==

== ENCOUNTER → 2025-09-22 12:45 | Outpatient (REF) | payer MEDICARE, SELFPAY | LOC: HWRCS 12:45 | PROVIDERS: ATTENDING PHYSICIAN Internal Medicine Cardiovascular Disease; FAMILY PHYSICIAN Internal Medicine | DX: R55 Syncope and collapse (principal) | CPT/HCPCS: 93306 ==

== ENCOUNTER 2025-09-27 06:51 | Day surgery (SDC) | payer MEDICARE, SELFPAY | END 2025-09-27 08:32 | disposition home or self-care (01) | LOC: CATH 06:51 | PROVIDERS: ATTENDING PHYSICIAN Internal Medicine Cardiovascular Disease; FAMILY PHYSICIAN Internal Medicine; OTHER PHYSICIAN Internal Medicine Cardiovascular Disease | DX: I48.19 Other persistent atrial fibrillation (principal); Z79.01 Long term (current) use of anticoagulants; R55 Syncope and collapse; Z79.899 Other long term (current) drug therapy | CPT/HCPCS: 92960; 93005 ==